=== PATIENT | male | born 1985 | race Caucasian/White ===

== ENCOUNTER 2016-10-28 19:04 | Inpatient (IN) | payer OTHER ==
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
--- NOTE | ~2016-10-28 | DS ---
Unit #: [id number] #: [id number] Patient: YUMIKO WEBER [id number] [facility] [address] [place] [address] [id number] I MR#: [id number] NAME: YUMIKO WEBER ROOM: P122 Age: 31 Sex: M Admission Date: 10/28/2016 : 1985 Discharge Date: 10/30/2016 Attending Physician: Mikey Goyal M.D. Primary Care Physician: Primary Care Physician No DISCHARGE SUMMARY REASON FOR ADMISSION The patient is a 31-year-old white male, admitted to the [address] [place] [address] for opioid detox. HOSPITAL COURSE The patient was admitted to the [address] [place] [address] and placed on routine detoxification protocol for opioids. His stay in the hospital was brief and uneventful one. On 10/30/2016, the patient requested discharge and stated that he would follow in the chemical dependency intensive outpatient program as though there was great suspicion among staff that the patient was planning to go and use heroin once again. FINAL DIAGNOSES Opioid use disorder; dysthymic disorder; and hepatitis C. DISPOSITION ON DISCHARGE The patient is discharged on the following medications; Paxil 20 mg daily for depression. DISCHARGE INSTRUCTIONS No dietary or physical restrictions were placed on the patient at the time of discharge. FOLLOWUP Followup will take place through the auspices of community mental health resources. PROGNOSIS The patient's prognosis is considered guarded. Dictated by... Mikey Goyal M.D. CB/jose TD: 10/31/2016 02:42 JOB #: [id number] Unit #: [id number] #: [id number] Patient: YUMIKO WEBER DISCHARGE SUMMARY X Mikey Goyal MD X DISCHARGE SUMMARY
--- NOTE | ~2016-10-28 | HP ---
Unit #: [id number] #: [id number] Patient: YUMIKO WEBER [id number] [place] [address] [id number] I MR#: [id number] NAME: YUMIKO WEBER ROOM: P122 Age: 31 Sex: M Admission Date: 10/28/2016 : 1985 Attending Physician: Mikey Goyal M.D. Admitting Physician: Mikey Goyal M.D. Primary Care Physician: Primary Care Physician No HISTORY AND PHYSICAL HISTORY OF PRESENT ILLNESS Yumiko is a 31 year old admitted to [address] [place] [address] because of his continued drug use. He shoots heroin. PAST MEDICAL HISTORY 1. Long history of poly-illicit substance abuse to include IV heroin. 2. Hepatitis C. PAST SURGICAL HISTORY Oral. ALLERGIES Penicillin, Ceclor. SOCIAL HISTORY Smokes 1 pack per day. Denies alcohol. Admits to a long history of opioid abuse. FAMILY HISTORY Medically noncontributory. REVIEW OF SYSTEMS CONSTITUTIONAL: No fever or chills. HEENT: Denies any sore throat, ear pain or runny nose. CARDIOVASCULAR: Denies chest pain, irregular heart rhythm or palpitations. CHEST: Denies shortness of breath or cough. No hemoptysis. GASTROINTESTINAL: Denies nausea, vomiting, diarrhea or chronic constipation. ENDOCRINE: Denies history of increased thirst or urination. No recent significant weight loss or gain. GENITOURINARY: Denies dysuria, frequency, or hematuria. SKIN: Denies any rashes. HEMATOLOGIC: Denies history of increased bleeding or bruising. MUSCULOSKELETAL: Denies any hot, swollen joints. No generalized muscle pain. NEUROLOGIC: Denies problems with vision or speech. No frequent, severe headaches. No numbness, tingling or weakness in any extremities. Denies loss of bladder or bowel control. CURRENT MEDICATIONS 1. Detox protocol. 2. Paxil 20 mg daily. 3. Nicotine patch 14 mg daily. Unit #: [id number] #: [id number] Patient: YUMIKO WEBER PHYSICAL EXAMINATION GENERAL: Alert, well-nourished, in no apparent distress. VITAL SIGNS: Blood pressure 128/80, heart rate 80, respirations 16, temperature 98.6. WEIGHT: 141. HEIGHT: 5 feet 10 inches. SKIN: Warm and dry without rash or lesion. HEENT: Normocephalic. TMs not viewed. Oral and nasal passages clear. Conjunctivae clear. PERRLA. EOMs intact. NECK: Supple without lymphadenopathy or thyromegaly. HEART: Regular rate and rhythm without murmur. LUNGS: Clear. ABDOMEN: Soft, nontender. : Not done. EXTREMITIES: No evidence of cyanosis, clubbing or edema. Moves all without focal deficit. NEUROLOGICAL: Grossly within normal limits. Cranial Nerves: II: Visual nolan are intact. III, IV AND : Extraocular movements are intact. Pupils are equal, round and reactive to light. V: Facial sensation is grossly normal. VII: Facial movements and expression are normal. VIII: Auditory acuity grossly intact. IX, X: Uvula is midline. Phonation is normal. XI: Patient shrugs shoulders and turns head normally. XII: Tongue protrudes in the midline. Sensory and Motor Function: Sensory and motor sensation is grossly normal. Motor: moves all extremities well. Coordination: Gait is normal. Deep Tendon Reflexes: Intact. IMPRESSION Psychiatric admission. RECOMMENDATIONS PSYCHIATRIC: Per psychiatrist. MEDICAL: See no contraindications to participate in facility's activities. MEDICAL PROGNOSIS Good. MEDICAL CONDITION Stable. Dictated by... Mi Elkins P.A.-C. for Tayo De Jesus/antonio TD: 10/29/2016 22:11 JOB #: [id number] Unit #: [id number] #: [id number] Patient: YUMIKO WEBER HISTORY AND PHYSICAL X Mi Elkins X HISTORY AND PHYSICAL
[~2016-10-28 19:04] MED LIST: ACETAMINOPHEN; ACETAMINOPHEN PO; BACTRIM DS TABL1 TAB PO; BENTYL20 MG PO; CLEOCIN HCL300 M1 PO; CLEOCIN PO; CLINDAMYCIN HC300 MG PO; E-MYCIN250 MG PO; EQUATE MIGRAINE; ERYTHROMYCIN500 MG PO; FLEXERIL PO; MEDROL4 MG/DOSE- PO; MOTRIN600 M1 PO; MOTRIN600 MG PO; NABUMETONE PO; NO MEDICATIONS; PEPTO-BISM525 MG/15; PHENERGAN PO; PHENERGAN25 MG PO; ROBITUSSIN A-C-S1 ML PO; TESSALON200 MG PO; TYLENOL #3 PO; VOLTAREN75 MG PO; ZITHROMAX PO
[2016-10-29 10:14] LABS: BASOPHIL# 0.1 X10e3 (0-0.3); BASOPHIL% 1.3 % (0-2.5); EOSINOPHIL# 0.4 X10e3 (0-0.7); EOSINOPHIL% 6.5 % (0.0-7.0); HEMATOCRIT 41.3 % (38.0-50.0); HEMOGLOBIN 13.8 gm/dL (13.0-16.0); LYMPHOCYTE# 2.1 X10e3 (1.0-3.5); MEAN CELL VOLUME 81.5 FL (83-96); MEAN CORPUSCULAR HEMOGLOBIN 27.2 PG (28-34); MEAN CORPUSCULAR HGB CONC 33.3 g/dL (30-36); MEAN PLATELET VOLUME 7.9 FL (6.5-11.5); MONOCYTE# 0.4 X10e3 (0-1.0); MONOCYTE% 7.7 % (3.0-12.0); NEUTROPHIL# 2.6 X10e3 (1.5-7.1); NEUTROPHIL% 46.5 % (40-75); PLATELET COUNT 252 X10e3 (140-420); RED BLOOD COUNT 5.07 X10e (3.90-5.60); RED CELL DISTRIBUTION WIDTH 13.7 % (11.0-15.5); WHITE BLOOD COUNT 5.6 X10e3 (4.0-10.5)
[2016-10-29 10:25] LABS: DIFF IND NO
[2016-10-29 10:31] LABS: ALBUMIN SERUM 3.4 g/dL (3.5-5.0); ALKALINE PHOSPHATASE 69 U/L (32-92); ALT (SGPT) 56 U/L (10-40); AST (SGOT) 44 U/L (10-42); BILIRUBIN,TOTAL 0.4 mg/dL (0.2-2.0); BLOOD UREA NITROGEN 11 mg/dL (9-23); BUN/CREATININE RATIO 15.71; CALCIUM SERUM 8.8 mg/dL (8.4-10.2); CARBON DIOXIDE 32 mmol/L (22-31); CHLORIDE 102 mmol/L (100-111); CREATININE SERUM 0.7 mg/dL (0.6-1.4); GLOM FILT RATE Estimated ABOVE60 mL/min (>60); GLUCOSE FASTING 93 mg/dL (70-110); POTASSIUM 4.9 mmol/L (3.5-5.1); PROTEIN TOTAL SERUM 6.7 g/dL (6.0-8.3); SODIUM 138 mmol/L (135-145)
[2016-10-30 09:27] LABS: URINE APPEARANCE CLEAR; URINE BILIRUBIN NEG (NEG); URINE BLOOD NEG (NEG); URINE COLOR YELLOW; URINE GLUCOSE NEG (NEG); URINE KETONE NEG (NEG); URINE LEUKOCYTE ESTERASE NEG (NEG); URINE NITRATE NEG (NEG); URINE PROTEIN NEG (NEG); URINE SPECIFIC GRAVITY 1.023 (1.003-1.035)
[2016-10-30 10:02] LABS: AMPHETAMINE POS (NEG); BARBITURATES NEG (NEG); BENZODIAZEPINES NEG (NEG); COCAINE NEG (NEG); MARIJUANA NEG (NEG); OPIATES POS (NEG); TRICYCLIC ANTIDEPRESSANTS NEG (NEG); U METHADONE NEG (NEG)
[2017-05-07] MEDS ORDERED: ULTRAM PO (02:35)
[2017-05-07] MEDS ORDERED: DESYREL100 MG PO (02:35)
[2017-05-07] MEDS ORDERED: NEURONTIN600 MG PO (02:36)
== END 2016-10-30 17:12 | disposition home or self-care (01) | DRG 897 ==
LOC: P1S 19:04
PROVIDERS: Specialist
PROC: HZ2ZZZZ Detoxification Services for Substance Abuse Treatment (ICD-10-PCS; principal; 2016-10-29)
DX: F11.20 Opioid dependence, uncomplicated (principal); B19.20 Unspecified viral hepatitis C without hepatic coma; F34.1 Dysthymic disorder; Z88.0 Allergy status to penicillin
CPT/HCPCS: 80053; 80307; 81003; 85025; 86592

== ENCOUNTER 2017-04-21 21:38 | Emergency (ER) | payer OTHER ==
[~2017-04-21] VITALS: Ht 177.8 cm; Wt 65.8 kg
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
[2017-04-21] MEDS ORDERED: NO MEDICATIONS (22:06)
[2017-05-07] MEDS ORDERED: ULTRAM PO (02:35)
[2017-05-07] MEDS ORDERED: DESYREL100 MG PO (02:35)
[2017-05-07] MEDS ORDERED: NEURONTIN600 MG PO (02:36)
== END 2017-04-22 00:32 | disposition home or self-care (01) ==
LOC: SED 21:38
DX: S82.112A Displaced fracture of left tibial spine, initial encounter for closed fracture (principal); F17.200 Nicotine dependence, unspecified, uncomplicated; Z88.0 Allergy status to penicillin; Z88.1 Allergy status to other antibiotic agents; V49.40XA Driver injured in collision with unspecified motor vehicles in traffic accident, initial encounter; Y93.89 Activity, other specified; Y92.410 Unspecified street and highway as the place of occurrence of the external cause
CPT/HCPCS: 29505; 73590; 73630; 93971; 99284

== ENCOUNTER 2017-04-26 10:43 | Emergency (ER) | payer OTHER ==
[~2017-04-26] VITALS: Ht 177.8 cm; Wt 65.8 kg
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
--- NOTE | ~2017-04-26 | CT16 ---
[facility] A Service of [facility] & [facility] RADIOLOGY TEXT RESULTS PATIENT: YUMIKO WEBER [id number] [birth year] UNIT #: [id number] AGE: [address]: Chito Ramsay MD SEX: M ORDER DR: [id number] [facility] [address] [place], [place] [address] [id number] I MR#: [id number] Acc #: [id number] NAME: YUMIKO WEBER : 1985 SEX: M STUDY DATE/TIME: 04/26/2017 14:22 UNIT: [facility] ROOM: [id number] STUDY DESCRIPTION: CT Angio Chest for PE Attending Physician: Tommy Handley M.D. Ordering Physician: Chito Ramsay M.D. Primary Care Physician: Primary Care Physician No MEDICAL IMAGING REPORT This report is preliminary unless electronic signature is present EXAM CT angiogram chest with IV contrast HISTORY Shortness of air and right side pain for [address] exam was performed with one or more of the following radiation dose reduction techniques: automatic exposure control, adjustment of mA and/or kV according to patient size, and iterative reconstruction. FINDINGS IV contrast enhanced CT angiogram chest was performed with 3-D reconstructions. There is mild atelectasis in the posterior right lower lobe. No airspace infiltrates or effusions. Minimal subpleural emphysema in the upper lobes. Mild subcarinal adenopathy measures 1.2 cm. Mild right hilar adenopathy measures 1.1 cm. No pulmonary embolus. Normal caliber pulmonary arteries. Normal caliber thoracic aorta. Srmh-iv-kzfiufhq splenic enlargement measuring 14 cm in AP dimension. Trace right pleural effusion. IMPRESSION 1. No pulmonary embolus. 2. Trace right pleural effusion with mild atelectasis in the posterior right lower lobe. 3. Minimal subpleural emphysema in the lung apices. 4. Mild mediastinal and right hilar adenopathy measuring up to 1.2 cm. 5. Mild splenomegaly measuring 14 cm in AP dimension. Dictated by... Gabriel Cornejo M.D. [facility] A Service of [facility] & [facility] RADIOLOGY TEXT RESULTS PATIENT: YUMIKO WEBER LOCATION: [facility] : 87 UNIT #: [id number] AGE: [address]: Chito Ramsay MD SEX: M ORDER DR: THIS IS AN ELECTRONICALLY VERIFIED REPORT Gabriel Cornejo M.D. at 04/27/2017 2:26 PM Chani TD: 04/27/2017 09:28 JOB #: [id number] MEDICAL IMAGING REPORT Page 1 of 1 COPY
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
--- NOTE | ~2017-04-26 | EKG ---
PATIENT: YUMIKO WEBER UNIT #: [id number] Ventricular Rate: 109 BPM Atrial Rate: 109 BPM P-R Interval: 132 ms QRS Duration: 76 ms Q-T Interval: 312 ms QTC Calculation(Bezet): 420 ms P [place]: 53 degrees Calculated R [place]: 12 degrees Calculated T [place]: 45 degrees Diagnosis Line: Sinus tachycardia Diagnosis Line: Otherwise normal ECG Diagnosis Line: No previous ECGs available Diagnosis Line: Confirmed by REBA URIBE MD ([id number]) on Diagnosis Line: 04/26/2017 2:27:23 PM INTERPRETING MD: RONY HWANG
--- NOTE | ~2017-04-26 | CR72 ---
[facility] A Service of [facility] RADIOLOGY TEXT RESULTS PATIENT: [facility]UM[facility] WEBER [id number] [birth year] UNIT #: [id number] AGE: [address]: Chito Ramsay MD SEX: M ORDER DR: [id number] [facility] [address] [place], [place] [address] [id number] I MR#: [id number] Acc #: [id number] NAME: YUMIKO WEBER : 1985 SEX: M STUDY DATE/TIME: 04/26/2017 12:04 [facility] [address] STUDY DESCRIPTION: CR Chest Single View Portable Attending Physician: Eugenia Thomas M.D. Ordering Physician: Chito Ramsay M.D. Primary Care Physician: Primary Care Physician No MEDICAL IMAGING REPORT This report is preliminary unless electronic signature is present EXAM Portable chest radiograph INDICATION Right-sided chest pain worsened with breathing. This has been present for 1 day. FINDINGS Heart size is within normal limits. I do think there may be some minimal right basilar atelectasis. Some blunting of the right costophrenic angle is unchanged when compared to July 2012. No definite infiltrates are seen. Left lung appears clear. No pneumothorax is seen. Definite infiltrate is not identified on this portable chest radiograph. Left lung appears clear. Dictated by... Trish Carrillo M.D. THIS IS AN ELECTRONICALLY VERIFIED REPORT Trish Carrillo M.D. at 04/28/2017 8:32 AM CRUZ/lee TD: 04/27/2017 06:08 JOB #: [id number] MEDICAL IMAGING REPORT Page 1 of 1 COPY
[2017-04-26 12:49] LABS: BASOPHIL% 0.4 % (0-2.5); HEMATOCRIT 39.4 % (38.0-50.0); HEMOGLOBIN 13.3 gm/dL (13.0-16.0); LYMPHOCYTE# 0.6 X10e3 (1.0-3.5); LYMPHOCYTE% 5.6 % (17.0-45.0); MEAN CELL VOLUME 82.6 FL (83-96); MEAN CORPUSCULAR HEMOGLOBIN 27.8 PG (28-34); MEAN CORPUSCULAR HGB CONC 33.7 g/dL (30-36); MEAN PLATELET VOLUME 7.7 FL (6.5-11.5); MONOCYTE# 0.4 X10e3 (0-1.0); MONOCYTE% 3.5 % (3.0-12.0); NEUTROPHIL# 9.8 X10e3 (1.5-7.1); NEUTROPHIL% 90.5 % (40-75); PLATELET COUNT 192 X10e3 (140-420); RED BLOOD COUNT 4.77 X10e (3.90-5.60); RED CELL DISTRIBUTION WIDTH 13.9 % (11.0-15.5); WHITE BLOOD COUNT 10.9 X10e3 (4.0-10.5)
[2017-04-26 12:57] LABS: POC - CKMB <1.0 ng/mL (0.0-7.9); POC - TROPONIN <0.05 ng/mL (<=0.05)
[2017-04-26 13:02] LABS: DIFF IND NO
[2017-04-26 13:06] LABS: INR 1.2; PARTIAL THROMBOPLASTIN TIME 31.3 SECONDS (23.5-31.3); PROTHROMBIN TIME (PATIENT) 12.7 SECONDS (10.0-11.7)
[2017-04-26 13:21] LABS: ALBUMIN SERUM 3.9 g/dL (3.5-5.0); BILIRUBIN, DIRECT 0.2 mg/dL (0.0-0.2); BILIRUBIN,INDIRECT 0.5 mg/dL (0.0-0.9); BILIRUBIN,TOTAL 0.7 mg/dL (0.2-2.0); BUN/CREATININE RATIO 12.85; CALCIUM SERUM 8.7 mg/dL (8.4-10.2); CREATININE SERUM 0.7 mg/dL (0.6-1.4); GLOM FILT RATE Estimated 127.6 mL/min (>60); POTASSIUM 4.2 mmol/L (3.5-5.1); PROTEIN TOTAL SERUM 7.8 g/dL (6.0-8.3)
[2017-04-26 19:23] LABS: CK TOTAL 58 IU/L (36-174)
[2017-04-30 05:46] LABS: HA AB IGM (HEPPAN) Nonreactive (()); HB CORE AB IGM (HEPPAN) Nonreactive (Nonreactive); HB S AG (HEPPAN) Nonreactive (Nonreactive); HEP C AB (HEPPAN) Reactive (Nonreactive)
[2017-05-07] MEDS ORDERED: DESYREL100 MG PO (02:35)
[2017-05-07] MEDS ORDERED: ULTRAM PO (02:35)
[2017-05-07] MEDS ORDERED: NEURONTIN600 MG PO (02:36)
== END 2017-04-26 20:00 | disposition left against medical advice (07) ==
LOC: CED 10:43 → CEDOF 16:19 → CED 16:19 → CEDOF 04-27 07:30
PROVIDERS: Emergency Medicine; Family Medicine
DX: R65.10 Systemic inflammatory response syndrome (SIRS) of non-infectious origin without acute organ dysfunction (principal); F17.200 Nicotine dependence, unspecified, uncomplicated; Z88.0 Allergy status to penicillin; Z88.1 Allergy status to other antibiotic agents; Z86.19 Personal history of other infectious and parasitic diseases
CPT/HCPCS: 36415; 71010; 71275; 80048; 80074; 80076; 82550; 82553; 83605; 84484; 85025; 85610; 85730; 87040; 87077; 87186; 87522; 87806; 93005; 93971; 96361; 96365; 96375; 99285; J1580; J1885; J3370; Q9967

== ENCOUNTER 2017-04-28 19:33 | Inpatient (IN) | payer OTHER ==
[~2017-04-28] VITALS: Ht 177.8 cm; Wt 62.2 kg
--- NOTE | ~2017-04-28 | US84 ---
[id number] [facility] [address] [place], [place] [address] [id number] I MR#: [id number] Acc #: [id number] NAME: YUMIKO KAYE : 1985 SEX: M STUDY DATE/TIME: 04/29/2017 8:15 UNIT: C3A PCU ROOM: 327 STUDY DESCRIPTION: US LE Veins Complete Michael Stdy Attending Physician: Tejinder Hollis M.D. Referring Physician: No Primary Care Physician Ordering Physician: Patricia Razo M.D. Primary Care Physician: No Primary Care Physician MEDICAL IMAGING REPORT This report is preliminary unless electronic signature is present EXAM Bilateral lower extremity venous Doppler INDICATIONS Left leg pain and edema since 04/08/2017. PROCEDURE Kaye-scale, color Doppler, and spectral imaging deep veins of the right left leg. COMPARISON 04/26/2017 FINDINGS Deep veins of the right and left leg compress normally and show normal color Doppler and spectral characteristics. IMPRESSION No evidence for DVT in the right or left leg. Dictated by... Chase Mcguire M.D. THIS IS AN ELECTRONICALLY VERIFIED REPORT Chase Mcguire M.D. at 04/30/2017 12:10 PM ERWIND/jinny TD: 04/29/2017 16:05 JOB #: [id number] MEDICAL IMAGING REPORT Page 1 of 1 COPY
--- NOTE | ~2017-04-28 | EKG ---
PATIENT: YUMIKO WEBER UNIT #: [id number] Ventricular Rate: 102 BPM Atrial Rate: 102 BPM P-R Interval: 134 ms QRS Duration: 82 ms Q-T Interval: 336 ms QTC Calculation(Bezet): 437 ms P Davey: 37 degrees Calculated R Davey: 16 degrees Calculated T Davey: 32 degrees Diagnosis Line: Sinus tachycardia Diagnosis Line: Otherwise normal ECG Diagnosis Line: When compared with ECG of 26-APR-2017 11:56, Diagnosis Line: No significant change was found Diagnosis Line: Confirmed by REBA URIBE MD ([id number]) on Diagnosis Line: 04/30/2017 11:32:28 AM INTERPRETING MD: RONY HWANG
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
--- NOTE | ~2017-04-28 | HP ---
Unit #: [id number] #: [id number] Patient: YUMIKO WEBER [id number] [address] [address] [id number] I MR#: [id number] NAME: YUMIKO WEBER ROOM: 327 Age: 31 Sex: M Admission Date: 04/28/2017 : 1985 Attending Physician: Patricia Razo M.D. Referring Physician: No Primary Care Physician Primary Care Physician: No Primary Care Physician HISTORY AND PHYSICAL ADDENDUM Will also obtain an MRI scan of the thoracic spine with and without contrast given the radicular nature of the patient's right upper back and right chest pain. Dictated by Tayo Looney/ts TD: 04/29/2017 08:21 JOB #: [id number] HISTORY AND PHYSICAL Page 1 of 1 X Patricia Razo MD HISTORY AND PHYSICAL
--- NOTE | ~2017-04-28 | CR63 ---
[facility] A Service of [facility] RADIOLOGY TEXT RESULTS PATIENT: YUMIKO WEBER LOCATION: [facility] 327-01 : [birth year] UNIT #: [id number] AGE: [address]: Tejinder Hollis MD SEX: M ORDER DR: [id number] [facility] [address] [place], [place] [address] [id number] I MR#: [id number] Acc #: [id number] NAME: YUMIKO WEBER : 1985 SEX: M STUDY DATE/TIME: 04/29/2017 07:56 UNIT: [address] ROOM: [facility] STUDY DESCRIPTION: CR Chest 2 View Attending Physician: Tejinder Hollis M.D. Referring Physician: No Primary Care Physician Ordering Physician: Patricia Razo M.D. Primary Care Physician: No Primary Care Physician MEDICAL IMAGING REPORT This report is preliminary unless electronic signature is present EXAM Chest 2 views, 04/29/2017, 0756 hours. HISTORY 31-year-old man with complaint of right-sided chest pain since yesterday. Staphylococcus bacteremia. History of hepatitis C. COMPARISON 04/28/2017 FINDINGS Upright PA and lateral views of the chest demonstrate normal heart size and normal aortic contours. Pulmonary venous distension and bilateral interstitial changes have improved. The patient does have a small right pleural effusion new from 04/28/2017. No left effusion seen. IMPRESSION Two-view chest demonstrates decrease in pulmonary venous distension and resolution of bilateral interstitial changes since yesterday's study. Patient does have a new small right pleural effusion. Dictated by... Madina Eastman M.D. THIS IS AN ELECTRONICALLY VERIFIED REPORT Madina Eastman M.D. at 04/29/2017 5:52 PM JENNY/laci TD: 04/29/2017 14:50 JOB #: [id number] MEDICAL IMAGING REPORT Page 1 of 1 COPY
--- NOTE | ~2017-04-28 | CT120 ---
[facility] A Service of [facility] RADIOLOGY TEXT RESULTS PATIENT: YUMIKO WEBER LOCATION: [facility] [address] : [birth year] UNIT #: [id number] AGE: [address]: Daksha Hdz MD SEX: M ORDER DR: [id number] [address] [place], [place] [address] [id number] I MR#: [id number] Acc #: [id number] NAME: YUMIKO WEBER : 1985 SEX: M STUDY DATE/TIME: 04/30/2017 13:25 UNIT: [facility] ROOM: [facility] STUDY DESCRIPTION: CT Thoracic Spine W Cont Attending Physician: Tejinder Hollis M.D. Referring Physician: Primary Care Physician No Ordering Physician: Tejinder Hollis M.D. Primary Care Physician: Primary Care Physician No MEDICAL IMAGING REPORT This report is preliminary unless electronic signature is present EXAM Thoracic spine CT with contrast, 04/30/2017 PROCEDURE Axial contrast-enhanced thoracic spine CT with multiplanar reformats. This CT exam was performed with one or more of the following radiation dose reduction techniques: automatic exposure control, adjustment of mA and/or kV according to patient size, and iterative reconstruction. COMPARISON Chest radiograph 04/29/[address] 04/26/2017 CLINICAL HISTORY Back pain, bacteremia, concern for possible discitis. FINDINGS Spine alignment is normal. There is no fracture, bone erosion or destruction. There is a right pleural effusion. The adjacent tissues are otherwise normal. IMPRESSION Right pleural effusion, otherwise normal contrast-enhanced CT of the thoracic spine. Dictated by... Harley Asher M.D. THIS IS AN ELECTRONICALLY VERIFIED REPORT Harley Asher M.D. at 05/07/2017 7:34 AM TEV/ljd [facility] A Service of [facility] RADIOLOGY TEXT RESULTS PATIENT: YUMIKO WEBER LOCATION: [facility] 327 : [birth year] UNIT #: [id number] AGE: [address]: Daksha Hdz MD SEX: M ORDER DR: TD: 04/30/2017 23:04 JOB #: [id number] MEDICAL IMAGING REPORT Page 1 of 1 COPY
--- NOTE | ~2017-04-28 | CR72 ---
[facility] A Service of [facility] & [facility] RADIOLOGY TEXT RESULTS PATIENT: YUMIKO WEBER LOCATION: [facility] 327-01 : [birth year] UNIT #: [id number] AGE: [address]: Tejinder Hollis MD SEX: M ORDER DR: [id number] [facility] [address] [place], [place] [address] [id number] I MR#: [id number] Acc #: [id number] NAME: YUMIKO WEBER : 1985 SEX: M STUDY DATE/TIME: 04/28/2017 20:41 [facility] STUDY DESCRIPTION: CR Chest Single View Portable Attending Physician: Patricia Razo M.D. Referring Physician: No Primary Care Physician Ordering Physician: Juan Augustin M.D. Primary Care Physician: No Primary Care Physician MEDICAL IMAGING REPORT This report is preliminary unless electronic signature is present EXAM Portable chest. HISTORY Chest pain and shortness of air for 5 days. FINDINGS Mild cardiac enlargement and vascular congestion, increased since 04/26/2017. Mild interstitial prominence in both lungs has also increased and this could be secondary to mild interstitial edema. No focal airspace consolidation. No pleural effusion. Mild pleural thickening and calcification of the lung apices. IMPRESSION New mild interstitial prominence in both lungs and new mild vascular congestion and slightly increased cardiac enlargement. Findings could be secondary to mild congestive heart failure and mild interstitial edema. No focal infiltrates. Dictated by... Gabriel Cornejo M.D. THIS IS AN ELECTRONICALLY VERIFIED REPORT Gabriel Cornejo M.D. at 04/29/2017 11:37 PM DFL/rehana TD: 04/29/2017 08:58 JOB #: [id number] MEDICAL IMAGING REPORT Page 1 of 1 COPY
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
[2017-04-28 21:18] LABS: BASOPHIL% 0.3 % (0-2.5); EOSINOPHIL# 0.1 X10e3 (0-0.7); EOSINOPHIL% 1.4 % (0.0-7.0); HEMATOCRIT 32.8 % (38.0-50.0); HEMOGLOBIN 11.3 gm/dL (13.0-16.0); LYMPHOCYTE# 1.3 X10e3 (1.0-3.5); LYMPHOCYTE% 19.6 % (17.0-45.0); MEAN CELL VOLUME 81.3 FL (83-96); MEAN CORPUSCULAR HGB CONC 34.4 g/dL (30-36); MEAN PLATELET VOLUME 7.9 FL (6.5-11.5); MONOCYTE# 0.5 X10e3 (0-1.0); MONOCYTE% 7.4 % (3.0-12.0); NEUTROPHIL# 4.9 X10e3 (1.5-7.1); NEUTROPHIL% 71.3 % (40-75); PLATELET COUNT 181 X10e3 (140-420); RED BLOOD COUNT 4.03 X10e (3.90-5.60); RED CELL DISTRIBUTION WIDTH 13.4 % (11.0-15.5); WHITE BLOOD COUNT 6.8 X10e3 (4.0-10.5)
[2017-04-28 21:19] LABS: DIFF IND NO
[2017-04-28 21:31] LABS: INR 1.1; PARTIAL THROMBOPLASTIN TIME 33.1 SECONDS (23.5-31.3)
[2017-04-28 21:37] LABS: ALBUMIN SERUM 3.7 g/dL (3.5-5.0); BILIRUBIN, DIRECT 0.1 mg/dL (0.0-0.2); BILIRUBIN,INDIRECT 0.4 mg/dL (0.0-0.9); BILIRUBIN,TOTAL 0.5 mg/dL (0.2-2.0); CALCIUM SERUM 8.4 mg/dL (8.4-10.2); CREATININE SERUM 0.7 mg/dL (0.6-1.4); GLOM FILT RATE Estimated 127.6 mL/min (>60); POTASSIUM 3.1 mmol/L (3.5-5.1); PROTEIN TOTAL SERUM 7.5 g/dL (6.0-8.3)
[2017-04-28] MEDS ORDERED: MOTRIN400 M1 PO (23:46)
[2017-04-29 00:23] LABS: URINE SOURCE CLEAN CATCH
[2017-04-29 00:29] LABS: URINE APPEARANCE CLEAR; URINE BILIRUBIN NEG (NEG); URINE BLOOD NEG (NEG); URINE COLOR YELLOW; URINE GLUCOSE NEG (NEG); URINE KETONE NEG (NEG); URINE LEUKOCYTE ESTERASE NEG (NEG); URINE NITRATE NEG (NEG); URINE PROTEIN NEG (NEG); URINE SPECIFIC GRAVITY 1.011 (1.003-1.035); URINE UROBILINOGEN 0.2 MG/DL (NEG)
[2017-04-29 00:31] LABS: CULTURE INDICATED? NO
[2017-04-29 04:25] LABS: BASOPHIL% 0.4 % (0-2.5); EOSINOPHIL# 0.2 X10e3 (0-0.7); EOSINOPHIL% 2.7 % (0.0-7.0); HEMATOCRIT 29.1 % (38.0-50.0); HEMOGLOBIN 10.1 gm/dL (13.0-16.0); LYMPHOCYTE# 1.6 X10e3 (1.0-3.5); MEAN CELL VOLUME 81.4 FL (83-96); MEAN CORPUSCULAR HEMOGLOBIN 28.2 PG (28-34); MEAN CORPUSCULAR HGB CONC 34.7 g/dL (30-36); MEAN PLATELET VOLUME 7.4 FL (6.5-11.5); MONOCYTE# 0.7 X10e3 (0-1.0); NEUTROPHIL# 4.2 X10e3 (1.5-7.1); NEUTROPHIL% 61.9 % (40-75); PLATELET COUNT 157 X10e3 (140-420); RED BLOOD COUNT 3.58 X10e (3.90-5.60); RED CELL DISTRIBUTION WIDTH 13.9 % (11.0-15.5); WHITE BLOOD COUNT 6.8 X10e3 (4.0-10.5)
[2017-04-29 04:26] LABS: DIFF IND NO
[2017-04-29 04:47] LABS: CALCIUM SERUM 8.1 mg/dL (8.4-10.2); CREATININE SERUM 0.6 mg/dL (0.6-1.4); GLOM FILT RATE Estimated 135.9 mL/min (>60); POTASSIUM 3.8 mmol/L (3.5-5.1)
[2017-04-30 11:36] LABS: BLOOD UREA NITROGEN <5 mg/dL (9-23); BUN/CREATININE RATIO 8.33; CALCIUM SERUM 8.4 mg/dL (8.4-10.2); CARBON DIOXIDE 27 mmol/L (22-31); CHLORIDE 105 mmol/L (100-111); CREATININE SERUM 0.6 mg/dL (0.6-1.4); GLUCOSE FASTING 133 mg/dL (70-110); POTASSIUM 3.9 mmol/L (3.5-5.1); SODIUM 138 mmol/L (135-145)
[2017-05-02 05:15] LABS: HEMATOCRIT 30.5 % (38.0-50.0); HEMOGLOBIN 10.5 gm/dL (13.0-16.0); MEAN CELL VOLUME 80.6 FL (83-96); MEAN CORPUSCULAR HEMOGLOBIN 27.8 PG (28-34); MEAN CORPUSCULAR HGB CONC 34.5 g/dL (30-36); MEAN PLATELET VOLUME 7.4 FL (6.5-11.5); RED BLOOD COUNT 3.78 X10e (3.90-5.60); RED CELL DISTRIBUTION WIDTH 13.4 % (11.0-15.5); WHITE BLOOD COUNT 8.5 X10e3 (4.0-10.5)
[2017-05-02 05:59] LABS: CARBON DIOXIDE 26 mmol/L (22-31); CHLORIDE 107 mmol/L (100-111); CREATININE SERUM 0.7 mg/dL (0.6-1.4); GLOM FILT RATE Estimated 126.7 mL/min (>60); GLUCOSE FASTING 110 mg/dL (70-110); POTASSIUM 3.4 mmol/L (3.5-5.1); SODIUM 139 mmol/L (135-145)
[2017-05-02 06:00] LABS: BLOOD UREA NITROGEN <5 mg/dL (9-23); BUN/CREATININE RATIO 7.14
[2017-05-03 10:35] LABS: CALCIUM SERUM 8.1 mg/dL (8.4-10.2); CARBON DIOXIDE 28 mmol/L (22-31); CHLORIDE 105 mmol/L (100-111); CREATININE SERUM 0.7 mg/dL (0.6-1.4); GLOM FILT RATE Estimated 126.7 mL/min (>60); GLUCOSE FASTING 96 mg/dL (70-110); POTASSIUM 3.7 mmol/L (3.5-5.1); SODIUM 140 mmol/L (135-145)
[2017-05-03 10:37] LABS: BLOOD UREA NITROGEN <5 mg/dL (9-23); BUN/CREATININE RATIO 7.14
[2017-05-07] MEDS ORDERED: DESYREL100 MG PO (02:35)
[2017-05-07] MEDS ORDERED: ULTRAM PO (02:35)
[2017-05-07] MEDS ORDERED: NEURONTIN600 MG PO (02:36)
== END 2017-05-03 18:36 | disposition left against medical advice (07) | DRG 871 ==
LOC: CED 19:33 → CEDOF 23:50 → C3A PCU 23:50 → CED 23:52 → CEDOF 23:52 → C3A PCU 04-29 00:41
PROVIDERS: Emergency Medicine; Family Medicine; Internal Medicine; Internal Medicine Endocrinology, Diabetes & Metabolism
PROC: B24BZZZ Ultrasonography of Heart with Aorta (ICD-10-PCS; principal; 2017-04-29)
DX: A41.01 Sepsis due to Methicillin susceptible Staphylococcus aureus (principal); I33.0 Acute and subacute infective endocarditis; F11.10 Opioid abuse, uncomplicated; F15.10 Other stimulant abuse, uncomplicated; E87.6 Hypokalemia; B18.2 Chronic viral hepatitis C; R74.0 Nonspecific elevation of levels of transaminase and lactic acid dehydrogenase [LDH]; R07.9 Chest pain, unspecified; D64.9 Anemia, unspecified; M79.89 Other specified soft tissue disorders; I07.1 Rheumatic tricuspid insufficiency; Z88.0 Allergy status to penicillin
CPT/HCPCS: 36415; 71010; 71020; 71275; 72129; 80048; 80074; 80076; 80202; 81003; 82550; 82553; 83605; 83690; 84484; 85025; 85027; 85610; 85730; 87040; 87077; 87186; 87522; 87806; 93005; 93306; 93970; 93971; 94760; 96361; 96365; 96375; 99285; 99291; J0696; J1170; J1580; J1650; J1885; J2250; J3010; J3370; Q9967